=== PATIENT | male | born 1995 | race African-American/Black ===

== ENCOUNTER 2017-02-24 10:26 | Emergency (ER) | payer OTHER ==
[2017-02-24 10:45] VITALS: BP 147/75; PULSE 70; TEMP 98.4; BMI 35.6
[2017-02-24] MEDS ORDERED: DIPHTH,PERTUSS(ACELL),TET 0.5 ML DISP.SYRIN IM ONE (11:20)
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
== END 2017-02-24 12:55 | disposition home or self-care (01) ==
LOC: JERFT 10:26
PROC: 3E0234Z Introduction of Serum, Toxoid and Vaccine into Muscle, Percutaneous Approach (ICD-10-PCS; principal; 2017-02-24)
PROC: 0JQG0ZZ Repair Right Lower Arm Subcutaneous Tissue and Fascia, Open Approach (ICD-10-PCS; 2017-02-24)
DX: S51.011A Laceration without foreign body of right elbow, initial encounter (principal); S61.214A Laceration without foreign body of right ring finger without damage to nail, initial encounter; X78.0XXA Intentional self-harm by sharp glass, initial encounter; Y93.89 Activity, other specified; Y92.118 Other place in children's home and orphanage as the place of occurrence of the external cause; Y99.8 Other external cause status
CPT/HCPCS: 73070-TC-RT; 73090-TC-RT; 73130-TC-RT; 90715; 99281-25